=== PATIENT | female | born 1970 | race African-American/Black ===

== ENCOUNTER 2018-12-08 17:09 | Emergency (ER) | payer SELFPAY ==
[~2018-12-08] VITALS: Ht 157.5 cm; Wt 93.0 kg
[2018-12-08 17:36] VITALS: BP 152/74
[2018-12-08] MEDS ORDERED: TRAM50TA PO (19:24)
[2018-12-08] MEDS ORDERED: SULF1TAB24 PO (19:24)
--- NOTE | 2018-12-08 19:24 | PHYS DOC ---
Past Medical History Past Medical History: High Cholesterol, Hypertension Past Surgical History: No Surgical History Additional Information: 2 ciggerattes per day Alcohol Use: Rarely Drug Use: None Adult General Chief Complaint Chief Complaint: INSECT BITE HPI HPI Patient is a 48-year-old female who presents with complaint of ankle skin lesion on her right lateral hip. Patient states that she thinks that she may have been bitten by a spider. She denies any fever. She rates pain as moderate at a 5-6 out of 10. She denies any nausea or vomiting. Review of Systems Review of Systems Constitutional: Denies fever or chills [] Respiratory: Denies cough or shortness of breath [] Cardiovascular: No additional information not addressed in HPI [] GI: Denies abdominal pain, nausea, vomiting or diarrhea [] Integument: Positive painful, red skin right hip[] Current Medications Current Medications Current Medications Medications (Trade) Dose Ordered Sig/Kit Start Time Stop Time Status Last Admin Dose Admin Trimethoprim/ Sulfamethoxazole (Bactrim Ds) 1 tab 1X ONCE 12/08/18 19:45 12/08/18 19:46 Allergies Allergies Allergies Coded Allergies Type Severity Reaction Last Updated Verified No Known Drug Allergies 12/08/18 No Physical Exam Physical Exam Constitutional: Well developed, well nourished, no acute distress, non-toxic appearance. [] Cardiovascular:Heart rate regular rhythm, no murmur [] Lungs & Thorax: Bilateral breath sounds clear to auscultation [] Skin: Right lateral hip demonstrates a tender, erythematous, indurated lesion approximately 4 cm in diameter. No fluctuance. [] Current Patient Data Vital Signs Vital Signs Date Time Temp Pulse Resp B/P (MAP) Pulse Ox O2 Delivery O2 Flow Rate FiO2 12/08/18 17:36 98.3 83 22 152/74 (100) 98 Room Air 98.3 EKG EKG [] Radiology/Procedures Radiology/Procedures [] Course & Med Decision Making Course & Med Decision Making Pertinent Labs and Imaging studies reviewed. (See chart for details) [] Dragon Disclaimer Dragon Disclaimer This electronic medical record was generated, in whole or in part, using a voice recognition dictation system. Departure Departure Impression: Primary Impression: Carbuncle Disposition: 01 HOME, SELF-CARE Condition: STABLE Referrals: UNKNOWN PCP NAME (PCP) Patient Instructions: Cellulitis Scripts Tramadol Hcl (TRAMADOL HCL) 50 Mg Tablet 50 MG PO Q6HRS PRN for PAIN, #10 TAB Prov: ERROL QUIROGA Jr. DO 12/08/18 Sulfamethoxazole/Trimethoprim (BACTRIM DS TABLET) 1 Each Tablet 1 TAB PO BID, #20 TAB Prov: ERROL QUIROGA Jr. DO 12/08/18 ERORL QUIROGA Jr. DO Dec 08, 2018 19:24
[2018-12-08] MEDS ORDERED: SMZ/TMP 800/160MG TABLET. PO ONE (19:45)
== END 2018-12-08 19:40 | disposition home or self-care (01) ==
LOC: ER 17:09
DX: L02.435 Carbuncle of right lower limb (principal); F17.210 Nicotine dependence, cigarettes, uncomplicated; E78.00 Pure hypercholesterolemia, unspecified; I10 Essential (primary) hypertension
CPT/HCPCS: 99283